=== PATIENT | female | born 1970 | race Two or more races ===

== ENCOUNTER 2024-03-04 18:12 | Emergency (ER) | payer MEDICAID ==
[~2024-03-04] VITALS: Ht 160 cm; Wt 60.2 kg
[2024-03-04 18:51] LABS: Basophils # (auto) 0.1 10 ^3/uL (0-0.2); Basophils % (auto) 0.6 % (0.0-2.0); Eosinophils # (auto) 0 10 ^3/uL (0-0.8); Eosinophils % (auto) 0.4 % (0.0-7.0); Hemoglobin 14.1 g/dL (12.2-16.2); Lymphocytes # (auto) 1.1 10 ^3/uL (0.4-5.4); Lymphocytes % (auto) 11.1 % (10.0-50.0); Mean Corpuscular Hemoglobin 31.9 pg (28.0-32.0); Mean Corpuscular Hgb Conc. 35.1 g/dL (32.0-36.0); Mean Corpuscular Volume 90.8 fL (80.0-100.0); Monocytes # (auto) 0.6 10 ^3/uL (0-1.3); Monocytes % (auto) 6.5 % (0.0-12.0); Neutrophils # (auto) 8.1 10 ^3/uL (1.6-8.6); Neutrophils % (auto) 81.4 % (37.0-80.0); Platelet Count (auto) 319 10^3/uL (140-450); Red Blood Cells 4.41 10^6/uL (4.0-5.20); White Blood Cell 9.9 10^3/uL (4.4-10.8)
[2024-03-04 18:57] LABS: Urine Bacteria None Seen /hpf (None Seen)
[2024-03-04 19:08] LABS: Alanine Aminotransferase 15 U/L (7-40); Alkaline Phosphatase 80 U/L (46-116); Anion Gap 16 (5-15); Aspartate Aminotransferase 17 U/L (13-40); BUN/Creatinine Ratio 13.3 (10.0-20.0); Bilirubin, Total 0.6 mg/dL (0.2-1.0); Blood Urea Nitrogen 11 mg/dL (9-23); Calcium 9.7 mg/dL (8.7-10.4); Carbon Dioxide 15 mmol/L (20-30); Chloride 105 mmol/L (98-107); Glucose 79 mg/dL (74-106); Potassium 3.9 mmol/L (3.5-5.1); Sodium 136 mmol/L (136-145); Total Protein 7.9 g/dL (5.7-8.2)
[2024-03-04 19:12] LABS: Urine Blood 1+ /uL (Negative); Urine Clarity Clear (Clear); Urine Color Light-Yellow (Yellow); Urine Hyaline Cast MANY /lpf (0 - 2); Urine Mucus FEW (None Seen); Urine Protein, UAD 1+ (Negative); Urine Specific Gravity 1.031 (1.001-1.035); Urine Urobilinogen Normal (Negative); Urine WBC 1 /hpf (0 - 5); Urine pH 5.5 (5.0-9.0)
[2024-03-04 21:00] VITALS: PULSE 64; RESP 14; TEMP 98.1; O2SAT 100
[2024-03-04] MEDS: IOHEXOL 300 MG/ML 100ML BOTTLE IJ ONE (21:20)
[2024-03-05] MEDS ORDERED: HYDR-4798 PO (00:21)
[2024-03-05] MEDS ORDERED: ZOFR4T SL (00:21)
[2024-03-05 01:00] VITALS: BP 150/83; PULSE 77; RESP 14; O2SAT 99
[2024-03-05] MEDS: HYDROcodone-ACET 10/325MG TAB PO ONE (01:03)
== END 2024-03-05 01:12 | disposition home or self-care (01) ==
LOC: ER 18:12
DX: K80.20 Calculus of gallbladder without cholecystitis without obstruction (principal)
CPT/HCPCS: 36415; 74177; 80053; 81001; 84484; 85025; 93005; 99285; Q9967

== ENCOUNTER 2024-04-27 09:59 | Emergency (ER) | payer MEDICAID ==
[~2024-04-27] VITALS: Ht 160 cm; Wt 54.3 kg
[~2024-04-27 09:59] MED LIST: HYDR-4798 PO; ZOFR4T SL
--- NOTE | 2024-04-27 11:06 | ED.PDOC ---
History of Present Illness HPI Comments This is a 53-year-old female who comes to the ED with chief complain of generalized body pain. Patient has a past surgical history relevant for appendectomy, , cholecystectomy performed one month ago. Patient stated that for the last two weeks she has been experiencing generalized body pain, chills, palpitation, shortness of breath. She is also experiencing left-sided chest pain, burning-like, moderate, relieves by laying flat, worsened by activity, more prominent at night, with mild relief with ibuprofen and Tylenol. She also states having dysuria, urinary urgency, frequency, she also has right flank pain and suprapubic pain which are sharp and moderate. Patient also states feeling severe anxiety, depression, hopelessness, inability to focus, sleep disturbances, low appetite, she has lost 15 lb in the last month, states been fearful, and she has suicidal thoughts, but no plan, denies having any prior episode of suicidal thoughts , she lives with her sons, denies any recent emotional distress. When speaking with her son, he states that her mother has been having this generalized pain and episodes of anxiety since she had her cholecystectomy one month ago, he stated that she has been worried about anything that she feels and looks up in the Internet for any signs and symptoms of different diseases, she has been going to other hospitals in the last couple of weeks and stated that no one has found what she is having. Chief Complaint: General Weakness Time Seen by MD: 10:05 Primary Care Provider: UNKNOWN Reviewed Notes: Nurses Notes Allergies: Coded Allergies: NO KNOWN ALLERGIES (Unverified , 03/04/24) Home Meds Active Scripts Hydrocodone-Acetaminophen (Hydrocodone Bitartrate/AC 10-325 mg) 1 Tab Tab, 1 TAB PO QIDPRN, #20 TAB Prov:KIRT BECKER MD 03/05/24 Ondansetron Odt 4MG Tab (ZOFRAN PO) 4 Mg Tb, 4 MG SL QIDPRN, #20 TAB ODT TAB-DISSOLVE IN MOUTH, THEN SWALLOW Prov:KIRT BECEKR MD 03/05/24 Information Source: Patient, Relative (Child) Mode of Arrival: Ambulatory Severity: Severe Timing: Weeks Past Medical History PAST MEDICAL HISTORY: Denies Surgical History: Appendectomy, Cholecystectomy, BUSINESS SUPPORT COORDINATOR History: Denies all BUSINESS SUPPORT COORDINATOR Hx Family History Family History: Reviewed,noncontributory to illness, Unknown Social History Smoker: Non-Smoker Alcohol: Denies ETOH Use Drugs: Denies Drug Use Lives In: Home Constitutional: reports: chills, malaise, weakness; denies: diaphoresis, fatigue, fever, sweats, others EENTM: denies: blurred vision, double vision, ear bleeding, ear discharge, ear drainage, ear pain, ear ringing, eye pain, eye redness, hearing loss, mouth pain, mouth swelling, nasal discharge, nose bleeding, nose congestion, nose pain, photophobia, tearing, throat pain, throat swelling, voice changes, others Respiratory: reports: shortness of breath; denies: cough, hemoptysis, orthopnea, SOB at rest, SOB with excertion, stridor, wheezing, others Cardiovascular: reports: chest pain, palpitations; denies: dizzy spells, diaphoresis, Dyspnea on exertion, edema, irregular heart beat, left arm pain, lightheadedness, PND, syncope, others Gastrointestinal: reports: abdominal pain, poor appetite; denies: abdomen distended, blood streaked bowels, constipated, diarrhea, dysphagia, difficulty swallowing, hematemesis, melena, nausea, poor fluid intake, rectal bleeding, rectal pain, vomiting, others Genitourinary: reports: burning, dysuria, flank pain, frequency, pain, urgency; denies: abnormal vagina bleeding, dyspareunia, hematuria, incontinence, pregna nt, vagina discharge, others Neurological: reports: paresthesia; denies: dizziness, fainting, headache, left sided numbness, left sided weakness, numbness, pre-existing deficit, right sided numbness, right sided weakness, seizure, speech problems, tingling, tremors, weakness, others Musculoskeletal: denies: back pain, gout, joint pain, joint swelling, muscle pain, muscle stiffness, neck pain, others Integumetry: denies: bruises, change in color, change in hair/nails, dryness, laceration, lesions, lumps, rash, wounds, others Allergic/Immunocompromised: denies: Difficulty Healing, Frequent Infections, Hives, Itching, others Hematologic/Lymphatic: denies: anemia, blood clots, easy bleeding, easy bruising, swollen glands, others Endocrine: denies: excessive hunger, excessive sweating, excessive thirst, excessive urination, flushing, intolerance to cold, intolerance to heat, unexplained weight gain, unexplained weight loss, others Psychiatric: denies: anxiety, bipolar disorder, depression, hopeless, panic disorder, schizophrenia, sleepless, suicidal, others Physical Exam General Appearance: Severe Distress, Thin HEENT: Normal ENT Inspection, Pharynx Normal, TMs Normal Neck: Full Range of Motion, Non-Tender, Normal, Normal Inspection Respiratory: Chest Non-Tender, Lungs Clear, No Accessory Muscle Use, No Respiratory Distress, Normal Breath Sounds Cardiovascular: No Edema, No JVD, No Murmur, No Gallop, Normal Peripheral Pulses, Regular Rate/Rhythm Breast Exam: Deferred Gastrointestinal: No Organomegaly, No Pulsatile Mass, Normal Bowel Sounds, Suprapubic, Tenderness Genitalia: Deferred Pelvic: Deferred Rectal: Deferred Extremities: No calf tenderness, Normal capillary refill, Normal inspection, Normal range of motion, Non-tender, No pedal edema Neurologic: Alert, rn wellness II-XII nml as Tested, No Motor Deficits, Normal Affect, Normal Mood, No Sensory Deficits Cerebellar Function: NOT DONE Reflexes: NOT DONE Skin: Dry, Normal Color, Warm Lymphatic: No Adenopathy Was a procedure done? Was a procedure done?: No Differential Dx Considerations may include: UTI, anxiety disorder, depression, PTSD, panic attack X-Ray, Labs, Meds, VS Vital Signs Date Time Temp Pulse Resp B/P (MAP) Pulse Ox O2 Delivery O2 Flow Rate FiO2 04/27/24 11:10 98.6 75 16 157/83 (107) 98 98.6 04/27/24 11:10 75 16 98 Room Air* 0 21 04/27/24 10:21 98.7 83 18 158/91 (113) 99 Lab Test 04/27/24 11:05 04/27/24 10:11 Range/Units White Blood Count 5.2 4.4-10.8 10^3/uL Red Blood Count 4.28 4.0-5.20 10^6/uL Hemoglobin 12.8 12.2-16.2 g/dL Hematocrit 37.0 36.0-46.0 % Mean Corpuscular Volume 86.5 80.0-100.0 fL Mean Corpuscular Hemoglobin 29.9 28.0-32.0 pg Mean Corpuscular Hemoglobin Concent 34.5 32.0-36.0 g/dL Red Cell Distribution Width 14.1 11.8-14.3 % Platelet Count 222 140-450 10^3/uL Mean Platelet Volume 8.1 6.9-10.8 fL Neutrophils (%) (Auto) 76.2 37.0-80.0 % Lymphocytes (%) (Auto) 13.2 10.0-50.0 % Monocytes (%) (Auto) 9.5 0.0-12.0 % Eosinophils (%) (Auto) 0.4 0.0-7.0 % Basophils (%) (Auto) 0.7 0.0-2.0 % Neutrophils # (Auto) 3.9 1.6-8.6 10 ^3/uL Lymphocytes # (Auto) 0.7 0.4-5.4 10 ^3/uL Monocytes # (Auto) 0.5 0-1.3 10 ^3/uL Eosinophils # (Auto) 0 0-0.8 10 ^3/uL Basophils # (Auto) 0 0-0.2 10 ^3/uL Nucleated Red Blood Cells 0.0 % Sodium Level 136 136-145 mmol/L Potassium Level 3.9 3.5-5.1 mmol/L Chloride Level 102 98-107 mmol/L Carbon Dioxide Level 28 20-31 mmol/L Anion Gap 6 5-15 Blood Urea Nitrogen 6 L 9-23 mg/dL Creatinine 0.50 L 0.550-1.02 mg/dL Glomerular Filtration Rate Calc 113 >90 mL/min BUN/Creatinine Ratio 12.0 10.0-20.0 Serum Glucose 112 H 74-106 mg/dL Calcium Level 9.6 8.7-10.4 mg/dL Total Bilirubin 0.7 0.2-1.0 mg/dL Aspartate Amino Transferase (AST) 18 13-40 U/L Alanine Aminotransferase (ALT) 37 7-40 U/L Alkaline Phosphatase 69 46-116 U/L Total Protein 7.1 5.7-8.2 g/dL Albumin 4.8 3.2-4.8 g/dL Urine Color Colorless Yellow Urine Clarity Clear Clear Urine pH 6.0 5.0-9.0 Urine Specific [place] 1.002 1.001-1.035 Urine Protein Negative Negative Urine Ketones 1+ H Negative Urine Blood Negative Negative /uL Urine Nitrite Negative Negative Urine Bilirubin Negative Negative Urine Urobilinogen Normal Negative mg/dL Urine Leukocyte Esterase Negative Negative /uL Urine RBC None seen 0 - 4 /hpf Urine WBC <1 0 - 5 /hpf Urine Squamous Epithelial Cells None seen <5 /hpf Urine Bacteria None seen None Seen /hpf Urine Glucose Normal Normal mg/dL Urine Opiates Screen Neg NEGATIVE Urine Fentanyl Screen Neg NEGATIVE Urine Barbiturates Screen Neg NEGATIVE Urine Phencyclidine Screen Neg NEGATIVE Urine Amphetamines Screen Neg NEGATIVE Urine Benzodiazepines Screen Neg NEGATIVE Urine Cocaine Screen Neg NEGATIVE Urine Cannabinoids Screen Neg NEGATIVE Current Medications Medications (Trade) Dose Ordered Sig/Alvaro Route Start Time Stop Time Status Last Admin Ketorolac Tromethamine (Toradol Injection) 60 mg ONCE ONCE IM 04/27/24 11:00 04/27/24 11:01 DC 04/27/24 11:10 On my initial examination, patient appeared in severe distress, she is crying, stating that she has suicidal thoughts, but also mentioned in the she feels safe with us, patient is also complaining of chest pain, suprapubic pain and right flank pain, her blood pressure is 158/91, she is on room air, heart rate is in the 80s. We will order CBC, CMP, UA, EKG, tele psych consult, Toradol IV, we will continue to reassess. CBC , CMP, UA, EKG were unremarkable , patient stated that the pain has improved. Patient is medically cleared, awaiting tele psych consult. Patient underwent psych consult, whom recommended 5150 hold. Images Reviewed?: Images reviewed and evaluated by me Time of 1ST Reevaluation: 10:54 Reevaluation 1ST: Unchanged Time of 2ND Reevaluation: 15:00 Reevaluation 2ND: Unchanged Patient Education/Counseling: Diagnosis, Treatment Family Education/Counseling: Diagnosis, Treatment Departure 1 Departure Time of Disposition: 15:34 Impression: Primary Impression: Anxiety disorder Additional Impressions: Depressive disorder Suicide ideation Disposition: 30 STILL A PATIENT Condition: Guarded Critical Care Note Critical Care Time?: No Stability Stability form required: No Heart Score Heart Score: Heart Score Response (Comments) Value History Slightly Suspicious 0 EKG Normal 0 Age 45-64 1 Risk Factors 1 or 2 risk factors 1 Troponin N/A 0 Total 2 ARI EPSTEIN RESIDENT Apr 27, 2024 11:06
[2024-04-27 11:10] VITALS: PULSE 75; RESP 16; O2SAT 98
[2024-04-27] MEDS: KETOROLAC TROMETH 60MG/2ML VIAL IM ONE (11:10)
[2024-04-27 11:29] LABS: Urine Bacteria None Seen /hpf (None Seen)
[2024-04-27 11:46] LABS: Urine Blood Negative /uL (Negative); Urine Clarity Clear (Clear); Urine Color Colorless (Yellow); Urine Protein, UAD Negative (Negative); Urine Specific Gravity 1.002 (1.001-1.035); Urine Urobilinogen Normal (Negative); Urine WBC <1 /hpf (0 - 5)
[2024-04-27 11:57] LABS: Alanine Aminotransferase 37 U/L (7-40); Albumin 4.8 g/dL (3.2-4.8); Alkaline Phosphatase 69 U/L (46-116); Anion Gap 6 (5-15); Aspartate Aminotransferase 18 U/L (13-40); Blood Urea Nitrogen 6 mg/dL (9-23); Calcium 9.6 mg/dL (8.7-10.4); Carbon Dioxide 28 mmol/L (20-31); Chloride 102 mmol/L (98-107); Glucose 112 mg/dL (74-106); Potassium 3.9 mmol/L (3.5-5.1); Sodium 136 mmol/L (136-145)
[2024-04-27 11:57] LABS: Amphetamine Screen, Urine Neg (NEGATIVE); Barbiturate Scree,Urine Neg (NEGATIVE); Benzodiazephine Screen, Urine Neg (NEGATIVE); Cocaine Screen, Urine Neg (NEGATIVE); Opiate Scree,Urine Neg (NEGATIVE)
[2024-04-27 11:58] LABS: Bilirubin, Total 0.7 mg/dL (0.2-1.0); Total Protein 7.1 g/dL (5.7-8.2)
[2024-04-27 11:58] LABS: Cannabinoid Screen, Urine Neg (NEGATIVE); Phencyclidine Screen, Urine Neg (NEGATIVE)
[2024-04-27 12:02] LABS: Basophils # (auto) 0 10 ^3/uL (0-0.2); Basophils % (auto) 0.7 % (0.0-2.0); Eosinophils # (auto) 0 10 ^3/uL (0-0.8); Eosinophils % (auto) 0.4 % (0.0-7.0); Hemoglobin 12.8 g/dL (12.2-16.2); Lymphocytes # (auto) 0.7 10 ^3/uL (0.4-5.4); Lymphocytes % (auto) 13.2 % (10.0-50.0); Mean Corpuscular Hemoglobin 29.9 pg (28.0-32.0); Mean Corpuscular Hgb Conc. 34.5 g/dL (32.0-36.0); Mean Corpuscular Volume 86.5 fL (80.0-100.0); Monocytes # (auto) 0.5 10 ^3/uL (0-1.3); Monocytes % (auto) 9.5 % (0.0-12.0); Neutrophils # (auto) 3.9 10 ^3/uL (1.6-8.6); Neutrophils % (auto) 76.2 % (37.0-80.0); Platelet Count (auto) 222 10^3/uL (140-450); Red Blood Cells 4.28 10^6/uL (4.0-5.20); Red Cell Distribution Width 14.1 % (11.8-14.3); White Blood Cell 5.2 10^3/uL (4.4-10.8)
--- NOTE | 2024-04-27 16:12 | DVHINCON2 ---
Date of service: Apr 27, [address] Michael Ireland Reason for Consultation Medication management and disposition. History of Present Illness Chief complaint: "Because I do not feel well". History of present illness: This is a 53 year female who was seen for evaluation via telepsychiatry. Patient was seen with the help of Sami- speaking RN. Patient reported that she has been feeling more depressed for last one month. Patient reported having trouble sleeping, loss of interest, energy low, appetite decreased and she feels hopeless and worthless. She reported having suicidal ideation with a plan to run into traffic. She denied any homicidal ideation. She denied any auditory or visual hallucination. Past psychiatric history: Patient denied any previous inpatient psychiatric hospitalization. She has never been treated for her depression in the past. She denied any suicide attempts in the past. Past Medical History As per history and physical. Past Surgical History As per history and physical. Family History She denied any family history of any psychiatric illness. Social History Patient is and has four children. Patient is currently unemployed and is living with her family. Substance use: Denied Allergies: Coded Allergies: NO KNOWN ALLERGIES (Unverified , 03/04/24) Home Meds Active Scripts Hydrocodone-Acetaminophen (Hydrocodone Bitartrate/AC 10-325 mg) 1 Tab Tab, 1 TAB PO QIDPRN, #20 TAB Prov:KIRT BECKER MD 03/05/24 Ondansetron Odt 4MG Tab (ZOFRAN PO) 4 Mg Tb, 4 MG SL QIDPRN, #20 TAB ODT TAB-DISSOLVE IN MOUTH, THEN SWALLOW Prov:KIRT BECKER MD 03/05/24 Review of Systems Review of systems is negative except HPI. Vital Signs Vital Signs Date Time Temp Pulse Resp B/P (MAP) Pulse Ox O2 Delivery O2 Flow Rate FiO2 04/27/24 11:10 98.6 75 16 157/83 (107) 98 98.6 04/27/24 11:10 Room Air* 0 21 Physical Exam Mental status examination: This is a 53 year female who appears slightly older than her stated age. Her grooming is marginal. Her eye contact limited. Her speech is soft and attempts hard to understand. She describes mood as "I feel sad" and her affect is constricted. She reported having suicidal ideation. She denied homicidal ideation. She denied any auditory or visual hallucination. Her thought processes circumstantial. She is oriented to time, place and person. Her attention and concentration impaired. Her memory and language impaired. Her judgment and insight is limited. Her impulse control is limited. Her fund of knowledge is intact. Labs/Diagnostic Data Labs Test 04/27/24 11:05 04/27/24 10:11 Range/Units White Blood Count 5.2 4.4-10.8 10^3/uL Red Blood Count 4.28 4.0-5.20 10^6/uL Hemoglobin 12.8 12.2-16.2 g/dL Hematocrit 37.0 36.0-46.0 % Mean Corpuscular Volume 86.5 80.0-100.0 fL Mean Corpuscular Hemoglobin 29.9 28.0-32.0 pg Mean Corpuscular Hemoglobin Concent 34.5 32.0-36.0 g/dL Red Cell Distribution Width 14.1 11.8-14.3 % Platelet Count 222 140-450 10^3/uL Mean Platelet Volume 8.1 6.9-10.8 fL Neutrophils (%) (Auto) 76.2 37.0-80.0 % Lymphocytes (%) (Auto) 13.2 10.0-50.0 % Monocytes (%) (Auto) 9.5 0.0-12.0 % Eosinophils (%) (Auto) 0.4 0.0-7.0 % Basophils (%) (Auto) 0.7 0.0-2.0 % Neutrophils # (Auto) 3.9 1.6-8.6 10 ^3/uL Lymphocytes # (Auto) 0.7 0.4-5.4 10 ^3/uL Monocytes # (Auto) 0.5 0-1.3 10 ^3/uL Eosinophils # (Auto) 0 0-0.8 10 ^3/uL Basophils # (Auto) 0 0-0.2 10 ^3/uL Nucleated Red Blood Cells 0.0 % Sodium Level 136 136-145 mmol/L Potassium Level 3.9 3.5-5.1 mmol/L Chloride Level 102 98-107 mmol/L Carbon Dioxide Level 28 20-31 mmol/L Anion Gap 6 5-15 Blood Urea Nitrogen 6 L 9-23 mg/dL Creatinine 0.50 L 0.550-1.02 mg/dL Glomerular Filtration Rate Calc 113 >90 mL/min BUN/Creatinine Ratio 12.0 10.0-20.0 Serum Glucose 112 H 74-106 mg/dL Calcium Level 9.6 8.7-10.4 mg/dL Total Bilirubin 0.7 0.2-1.0 mg/dL Aspartate Amino Transferase (AST) 18 13-40 U/L Alanine Aminotransferase (ALT) 37 7-40 U/L Alkaline Phosphatase 69 46-116 U/L Total Protein 7.1 5.7-8.2 g/dL Albumin 4.8 3.2-4.8 g/dL Urine Color Colorless Yellow Urine Clarity Clear Clear Urine pH 6.0 5.0-9.0 Urine Specific [place] 1.002 1.001-1.035 Urine Protein Negative Negative Urine Ketones 1+ H Negative Urine Blood Negative Negative /uL Urine Nitrite Negative Negative Urine Bilirubin Negative Negative Urine Urobilinogen Normal Negative mg/dL Urine Leukocyte Esterase Negative Negative /uL Urine RBC None seen 0 - 4 /hpf Urine WBC <1 0 - 5 /hpf Urine Squamous Epithelial Cells None seen <5 /hpf Urine Bacteria None seen None Seen /hpf Urine Glucose Normal Normal mg/dL Urine Opiates Screen Neg NEGATIVE Urine Fentanyl Screen Neg NEGATIVE Urine Barbiturates Screen Neg NEGATIVE Urine Phencyclidine Screen Neg NEGATIVE Urine Amphetamines Screen Neg NEGATIVE Urine Benzodiazepines Screen Neg NEGATIVE Urine Cocaine Screen Neg NEGATIVE Urine Cannabinoids Screen Neg NEGATIVE Assessment 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 Plan/Recommendation I will recommend 5150 hold for danger to self and transferred to inpatient psychiatric level of care. I will start her on Zoloft 25 mg p.o. daily. Care was coordinated with the patient and her RN. Plan discussed with: Patient ASH GALLOWAY MD Apr 27, 2024 16:12
--- NOTE | 2024-04-27 16:21 | DVH ---
Date: 04/27/2024 03:33 PM Examination: XY KUB ABDOMEN SINGLE VIEW History: flank pain Comparison: None TECHNIQUE: Frontal views of the abdomen was obtained. FINDINGS: Bowel gas pattern is unremarkable. Stool throughout colon. The lung bases are unremarkable. No acute osseous abnormality identified. IMPRESSION: 1. Nonobstructive bowel gas pattern.
[2024-04-27 16:43] VITALS: BP 154/85; PULSE 66; RESP 14; TEMP 98.6
[2024-04-27] MEDS ORDERED: POLYETHYLENE GLYCOL 17 GM PWDR PO ONE (17:00)
[2024-04-27] MEDS: POLYETHYLENE GLYCOL 17 GM PWDR PO ONE (17:35)
[2024-04-27] MEDS ORDERED: LORazepam 0.5 MG TAB PO PRN (17:45)
[2024-04-27] MEDS: LORazepam 0.5 MG TAB PO ONE (18:22)
[2024-04-27] MEDS: SERTRALINE HCL 50 MG TAB PO ONE (18:22)
[2024-04-27 19:30] VITALS: O2SAT 98
[2024-04-27] MEDS ORDERED: ACETAMINOPHEN 325 MG TAB PO PRN (22:00)
[2024-04-27] MEDS ORDERED: DOCUSATE SOD 100 MG CAP PO PRN (22:00)
[2024-04-28] MEDS ORDERED: SERTRALINE HCL 50 MG TAB PO SCH (10:00)
--- NOTE | 2024-05-01 11:15 | ECG ---
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
== END 2024-04-28 04:05 | disposition left against medical advice (07) ==
LOC: ER 09:59
DX: F41.9 Anxiety disorder, unspecified (principal); R07.89 Other chest pain; R45.851 Suicidal ideations; F33.2 Major depressive disorder, recurrent severe without psychotic features; Z90.49 Acquired absence of other specified parts of digestive tract; Z79.899 Other long term (current) drug therapy
CPT/HCPCS: 36415; 74018; 80053; 80307; 81001; 85025; 93005; 96372; 99285; J1885